=== PATIENT | female | born 1995 | race American Indian/Alaskan Native ===

== ENCOUNTER 2017-10-18 22:46 | Emergency (ER) | payer SELFPAY ==
[2017-10-19] MEDS ORDERED: DELTASONE PO ONE (08:39)
[2017-10-19] MEDS ORDERED: TORADOL IM ONE (08:39)
[2017-10-19 08:42] LABS: Bilirubin,Urine NEG (Negative); Blood,Urine LG (Negative); Color,Urine Yellow (Yellow); Mucus,Urine FEW /HPF; Urobilinogen,Urine < 2.0 mg/dL (<2.0)
--- NOTE | 2017-10-19 08:44 | Emergency Department Report ---
ED Back Pain/Injury HPI - General Chief Complaint: Urogenital-Female Stated Complaint: PELVIC PAIN/LEG TINGLING Time Seen by Provider: 10/19/17 08:06 Source: patient Limitations: No Limitations - History of Present Illness Initial Comments: This is a 22-year-old female nontoxic, well nourished in appearance, no acute signs of distress presents to the ED with c/o of acute on chronic lower back pain. Patient denies any pelvic pain, even though triage nurse wrote pelvic pain. Patient stated is only her back pain. Patient states has history of sciatica nerve pain which is similar symptoms as today. Patient states that pain radiates through to his bilateral lower extremity and is tingling. Patient denies any trauma. Denies any bladder or bowel instability. Patient denies any urinary symptoms. Denies any fever, chills, nausea, vomiting, headache, stiff neck, chest pain or shortness of breath. Patient denies any numbness or tingling. Denies any allergies. Denies significant past medical history besides sick cell trait. Patient stated is on her menstrual cycle today. MD Complaint: back pain -: days(s) (2) Similar Symptoms Previously: Yes Radiation: left leg, right leg Severity: mild Severity scale (0 -10): 8 Quality: aching Consistency: constant Improves With: immobilization, supine, sitting upright Worsens With: movement, walking Associated Symptoms: denies other symptoms. denies: confusion, weakness, chest pain, numbness, difficulty walking, cough, difficulty urinating, diaphoresis, incontinence, fever/chills, constipation, headaches, abdominal pain, loss of appetite, malaise, nausea/vomiting, rash, seizure, shortness of breath, syncope - Related Data Previous Rx's Medication Instructions Recorded Last Taken Type Acetaminophen/Codeine [Tylenol #3] 1 tab PO Q6H PRN #14 tab 07/01/14 Unknown Rx Azithromycin [Zithromax Z-GURU] 250 mg PO DAILY #6 tablet 07/01/14 Unknown Rx metroNIDAZOLE [Flagyl] 500 mg PO BID #10 tablet 07/01/14 Unknown Rx Cyclobenzaprine [Flexeril] 10 mg PO QHS PRN #10 tablet 10/19/17 Unknown Rx Ibuprofen [Motrin] 600 mg PO Q8H PRN #30 tablet 10/19/17 Unknown Rx Allergies Allergy/AdvReac Type Severity Reaction Status Date / Time No Known Allergies Allergy Unverified 07/01/14 16:35 ED Review of Systems ROS: Stated complaint: PELVIC PAIN/LEG TINGLING Other details as noted in HPI Constitutional: denies: chills, fever Eyes: denies: eye pain, eye discharge, vision change ENT: denies: ear pain, throat pain Respiratory: denies: cough, shortness of breath, wheezing Cardiovascular: denies: chest pain, palpitations Endocrine: no symptoms reported Gastrointestinal: denies: abdominal pain, nausea, diarrhea Genitourinary: denies: urgency, dysuria, discharge Musculoskeletal: back pain. denies: joint swelling, arthralgia Skin: denies: rash, lesions Neurological: denies: headache, weakness, paresthesias Psychiatric: denies: anxiety, depression Hematological/Lymphatic: denies: easy bleeding, easy bruising ED Past Medical Hx - Past Medical History Previous Medical History?: Yes Hx Sickle Cell Disease: Yes (trait) - Surgical History Past Surgical History?: No - Social History Smoking Status: Never Smoker Substance Use Type: Alcohol - Medications Home Medications: Home Medications Medication Instructions Recorded Confirmed Last Taken Type Acetaminophen/Codeine [Tylenol #3] 1 tab PO Q6H PRN #14 tab 07/01/14 Unknown Rx Azithromycin [Zithromax Z-GURU] 250 mg PO DAILY #6 tablet 07/01/14 Unknown Rx metroNIDAZOLE [Flagyl] 500 mg PO BID #10 tablet 07/01/14 Unknown Rx Cyclobenzaprine [Flexeril] 10 mg PO QHS PRN #10 tablet 10/19/17 Unknown Rx Ibuprofen [Motrin] 600 mg PO Q8H PRN #30 tablet 10/19/17 Unknown Rx ED Physical Exam - General Limitations: No Limitations General appearance: alert, in no apparent distress - Head Head exam: Present: atraumatic, normocephalic - Eye Eye exam: Present: normal appearance Pupils: Present: normal accommodation - ENT ENT exam: Present: normal exam, mucous membranes moist - Neck Neck exam: Present: normal inspection, full ROM. Absent: tenderness, meningismus, lymphadenopathy - Respiratory Respiratory exam: Present: normal lung sounds bilaterally. Absent: respiratory distress, wheezes, rales, rhonchi, stridor, chest wall tenderness, accessory muscle use, decreased breath sounds, prolonged expiratory - Cardiovascular Cardiovascular Exam: Present: regular rate, normal rhythm, normal heart sounds. Absent: bradycardia, tachycardia, irregular rhythm, systolic murmur, diastolic murmur, rubs, gallop - GI/Abdominal GI/Abdominal exam: Present: soft, normal bowel sounds. Absent: distended, tenderness, guarding, rebound, rigid, diminished bowel sounds - Rectal Rectal exam: Present: deferred - Extremities Exam Extremities exam: Present: normal inspection, full ROM, normal capillary refill. Absent: tenderness - Back Exam Back exam: Present: normal inspection, full ROM, paraspinal tenderness (lumbar paraspinal). Absent: tenderness, CVA tenderness (R), CVA tenderness (L), muscle spasm, vertebral tenderness, rash noted - Expanded Back Exam Expanded Back exam: Absent: saddle anesthesia Back exam: Negative Straight Leg Raising: Left, Right - Neurological Exam Neurological exam: Present: alert, oriented X3, normal gait - Psychiatric Psychiatric exam: Present: normal affect, normal mood - Skin Skin exam: Present: warm, dry, intact, normal color. Absent: rash ED Course Vital Signs 10/18/17 10/19/17 23:14 05:22 Temperature 98.7 F 98.3 F Pulse Rate 85 75 Respiratory 18 10 L Rate Blood Pressure 132/99 139/81 O2 Sat by Pulse 100 100 Oximetry - Reevaluation(s) Reevaluation #1: 10/19/17 08:45 Patient is speaking in full sentences with no signs of distress noted. ED Medical Decision Making - Medical Decision Making This is a 22-year-old female that presents with low back strain. Patient is stable was examined by me. There is no spinal tenderness. There is no cauda equina syndrome during examination. No bladder or bowel instability. Patient received Toradol 30 mg IM and prednisone 60 mg PO in the ED which stated her symptoms has resolved and subsided. UA obtained with slight elevation of WBCs. Patient is on her menstrual cycle today. Will treat patient with bactrim empirically. Patient is discharged with muscle relaxant and Motrin. Patient was instructed not to operate any machinery while taking muscle relaxant as they cause her drowsiness. Patient was referred to Follow-up with a primary care doctor in 3-5 days or if symptoms worsen and continue return to emergency room as soon as possible. At time of discharge, the patient does not seem toxic or ill in appearance. No acute signs of distress noted. Patient agrees to discharge treatment plan of care. No further questions noted by the patient. This chart is dictated with using [employer] Critical care attestation.: If time is entered above; I have spent that time in minutes in the direct care of this critically ill patient, excluding procedure time. ED Disposition Clinical Impression: Sciatic leg pain Low back strain Qualifiers: Encounter type: initial encounter Qualified Code(s): S39.012A - Strain of muscle, fascia and tendon of lower back, initial encounter Disposition: TO HOME OR SELFCARE Is pt being admited?: No Does the pt Need Aspirin: No Condition: Stable Instructions: Low Back Strain (ED), Cyclobenzaprine (By mouth), Sciatica (ED) Additional Instructions: Follow-up with your primary care doctor in 3-5 days or if symptoms worsen such as bladder or bowel stability, chest pain, short of breath, numbness or tingling sensation in extremities, headache, dizziness, visual changes, nausea vomiting, or abdominal pain, return back to emergency room as was possible. Take ibuprofen and Flexeril as prescribed. Do not operate heavy machinery while taking Flexeril due to sedation Prescriptions: Cyclobenzaprine [Flexeril] 10 mg PO QHS PRN #10 tablet PRN Reason: Muscle Spasm Ibuprofen [Motrin] 600 mg PO Q8H PRN #30 tablet PRN Reason: Pain Referrals: PRIMARY CARE, [Primary Care Provider] - 3-5 Days SHON WOODARD MD [Staff Physician] - 3-5 Days [facility] [Outside] - 3-5 Days [facility] [Outside] - 3-5 Days Forms: Work/School Release Form(ED)
[2017-10-19 08:45] LABS: RBC,Urine > 182.0 /HPF (0.0-6.0)
[2017-10-19 09:05] VITALS: BP 134/80
== END 2017-10-19 09:04 | disposition home or self-care (01) ==
LOC: ED 22:46
DX: S39.012A Strain of muscle, fascia and tendon of lower back, initial encounter (principal); M54.32 Sciatica, left side; M54.31 Sciatica, right side; D57.3 Sickle-cell trait; X58.XXXA Exposure to other specified factors, initial encounter; Y93.89 Activity, other specified; Y92.89 Other specified places as the place of occurrence of the external cause; Y99.8 Other external cause status
CPT/HCPCS: 81001; 87086; 96372; 99283; J1885; J7512

== ENCOUNTER 2018-04-24 13:29 | Emergency (ER) | payer OTHER ==
--- NOTE | 2018-04-24 13:55 | Emergency Department Report ---
Blank Doc - Documentation Documentation: This is a 22-year-old female that presents with vaginal bleeding x1 day. Stated is is unsure how long. Also has some pelvic cramping. Stated had vaginal bleeding yesterday but denies any today. This initial assessment diagnostic orders/clinical plan/treatment(s) is/are subject to change based on patient's health status, clinical progression and re- assessment by fellow clinical providers in the ED. Further treatment and workup at subsequent clinical providers discretion. Patient/guardians urged not to elope from ED s their condition may be serious if not clinically assessed and managed. Initial orders include: 1-Patient sent to [facility] for further evaluation and treatment 2- Labs 3- US OB
[2018-04-24 13:57] VITALS: BP 114/73
--- NOTE | 2018-04-24 14:44 | Emergency Department Report ---
<DIMITRIS CAUSEY - Last Filed: 04/24/18 16:55> ED Female HPI - General Chief complaint: Vaginal Bleeding Stated complaint: POSS MISCARRIAGE Time Seen by Provider: 04/24/18 13:54 Source: patient Mode of arrival: Ambulatory Limitations: No Limitations - History of Present Illness MD Complaint: vaginal bleeding, pelvic pain -: Last night Location: suprapubic Radiation: non-radiating Severity: moderate Severity scale (0 -10): 4 Quality: cramping Consistency: intermittent - Related Data Sexually active: Yes : 1 Para: 0 A: 1 Previous Rx's Medication Instructions Recorded Last Taken Type Acetaminophen/Codeine [Tylenol #3] 1 tab PO Q6H PRN #14 tab 07/01/14 Unknown Rx Azithromycin [Zithromax Z-GURU] 250 mg PO DAILY #6 tablet 07/01/14 Unknown Rx metroNIDAZOLE [Flagyl] 500 mg PO BID #10 tablet 07/01/14 Unknown Rx Cyclobenzaprine [Flexeril] 10 mg PO QHS PRN #10 tablet 10/19/17 Unknown Rx Ibuprofen [Motrin 600 MG tab] 600 mg PO Q8H PRN #15 tablet 04/19/18 Unknown Rx Acetaminophen [Tylenol 8 Hour] 650 mg PO TID #30 tablet.er 04/24/18 Unknown Rx Nitrofurantoin [place]/M-Cryst 100 mg PO Q12HR #14 capsule 04/24/18 Unknown Rx [Macrobid CAP] Allergies Allergy/AdvReac Type Severity Reaction Status Date / Time No Known Allergies Allergy Unverified 07/01/14 16:35 ED Review of Systems Comment: All other systems reviewed and negative Constitutional: denies: chills, malaise Respiratory: denies: cough, orthopnea, shortness of breath, SOB with exertion, SOB at rest, wheezing Cardiovascular: denies: chest pain, palpitations, dyspnea on exertion Gastrointestinal: denies: abdominal pain, nausea, vomiting, diarrhea, constipation, hematemesis, melena, hematochezia Genitourinary: denies: urgency, dysuria, frequency, hematuria Musculoskeletal: denies: back pain Neurological: denies: headache, weakness ED Past Medical Hx - Past Medical History Previous Medical History?: No Hx Sickle Cell Disease: Yes (trait) Additional medical history: GERD - Surgical History Past Surgical History?: No - Social History Smoking Status: Never Smoker Substance Use Type: None - Medications Home Medications: Home Medications Medication Instructions Recorded Confirmed Last Taken Type Acetaminophen/Codeine [Tylenol #3] 1 tab PO Q6H PRN #14 tab 07/01/14 Unknown Rx Azithromycin [Zithromax Z-GURU] 250 mg PO DAILY #6 tablet 07/01/14 Unknown Rx metroNIDAZOLE [Flagyl] 500 mg PO BID #10 tablet 07/01/14 Unknown Rx Cyclobenzaprine [Flexeril] 10 mg PO QHS PRN #10 tablet 10/19/17 Unknown Rx Ibuprofen [Motrin 600 MG tab] 600 mg PO Q8H PRN #15 tablet 04/19/18 Unknown Rx Acetaminophen [Tylenol 8 Hour] 650 mg PO TID #30 tablet.er 04/24/18 Unknown Rx Nitrofurantoin [place]/M-Cryst 100 mg PO Q12HR #14 capsule 04/24/18 Unknown Rx [Macrobid CAP] ED Physical Exam - General Limitations: No Limitations General appearance: alert, in no apparent distress - Head Head exam: Present: atraumatic, normocephalic, normal inspection - Eye Eye exam: Present: normal appearance, PERRL - ENT ENT exam: Present: normal exam, normal orophraynx, mucous membranes moist - Neck Neck exam: Present: normal inspection, full ROM. Absent: tenderness, meningismus, lymphadenopathy, thyromegaly - Respiratory Respiratory exam: Present: normal lung sounds bilaterally. Absent: respiratory distress, wheezes, rales, rhonchi, chest wall tenderness, accessory muscle use, decreased breath sounds, prolonged expiratory - Cardiovascular Cardiovascular Exam: Present: regular rate, normal rhythm, normal heart sounds - GI/Abdominal GI/Abdominal exam: Present: soft, normal bowel sounds. Absent: distended, tenderness, guarding, rebound, rigid, organomegaly, mass, bruit, pulsatile mass, hernia - Extremities Exam Extremities exam: Present: normal inspection, full ROM, normal capillary refill. Absent: pedal edema, calf tenderness - Back Exam Back exam: Present: normal inspection, full ROM. Absent: tenderness, CVA tenderness (R), CVA tenderness (L), muscle spasm, paraspinal tenderness, vertebral tenderness, rash noted - Neurological Exam Neurological exam: Present: alert, oriented X3, CN II-XII intact, normal gait, reflexes normal - Psychiatric Psychiatric exam: Present: normal mood - Skin Skin exam: Present: warm, intact, normal color ED Medical Decision Making - Lab Data Result diagrams: 04/24/18 14:29 04/24/18 14:50 ED Disposition Clinical Impression: Abdominal pain affecting , Vaginal bleeding during , UTI (urinary tract infection) during Disposition: DC-01 TO HOME OR SELFCARE Is pt being admited?: No Condition: Stable Instructions: Threatened Miscarriage (ED), (ED) Additional Instructions: You will need a repeat ultrasound in 1-2 weeks. If you have any worsening symptoms physician's ED immediately Follow-up with [facility] as you be referred Prescriptions: Acetaminophen [Tylenol 8 Hour] 650 mg PO TID #30 tablet.er Nitrofurantoin [place]/M-Cryst [Macrobid CAP] 100 mg PO Q12HR #14 capsule Referrals: YANIRA DELGADILLO [Primary Care Provider] - 3-5 Days RYLIE BUSTAMANTE [Staff Physician] - 3-5 Days Forms: Work/School Release Form(ED) <MOHAN ZARATE - Last Filed: 04/24/18 18:03> ED Review of Systems ROS: Stated complaint: POSS MISCARRIAGE Other details as noted in HPI ED Course Vital Signs 04/24/18 13:55 Temperature 98.1 F Pulse Rate 76 Respiratory 16 Rate Blood Pressure 114/73 O2 Sat by Pulse 99 Oximetry ED Medical Decision Making - Lab Data Result diagrams: 04/24/18 14:29 04/24/18 14:50 - Radiology Data Radiology results: report reviewed, image reviewed TECHNIQUE: Transabdominal and transvaginal obstetrical ultrasound with pulsed and color Doppler evaluation PRIORS: None. FINDINGS: There is a sac-like structure seen centrally within the uterus is measuring 2.2 centimeters in average diameter. By sac size corresponding to estimated gestational age 7 weeks 1 day There is echogenic thin linear septated appearance seen centrally without definitive pole or cardiac activity identified. No free fluid identified in the cul-de-sac Right ovary 3.6 x 3.2 x 4.5 centimeters. 2.8 centimeter complex cyst noted Left ovary 2.6 x 1.7 x 3.1 centimeters. There is normal vascular flow seen to both ovaries on pulsed and color Doppler evaluation IMPRESSION: There is presumed gestational sac seen centrally within the uterus. No definitive pole or structure seen at this time. May reflect very early IUP and continued followup along with correlation with lab values recommended. Right ovarian cyst noted Transcribed By: ALAN Dictated By: AUSTYN GAMA MD Electronically Authenticated By: AUSTYN GAMA MD Critical care attestation.: If time is entered above; I have spent that time in minutes in the direct care of this critically ill patient, excluding procedure time. ED Disposition Is pt being admited?: No Does the pt Need Aspirin: No Time of Disposition: 17:55
[2018-04-24 14:46] LABS: Basophils % (Auto) 0.3 % (0.0-1.8); Eosinophils % (Auto) 0.3 % (0.0-4.3); Hematocrit 31.8 % (30.3-42.9); Hemoglobin 9.9 gm/dl (10.1-14.3); Lymphocytes # (Auto) 1.5 K/mm3 (1.2-5.4); Lymphocytes % (Auto) 24.1 % (13.4-35.0); Mean Corpuscular HGB Conc 31 % (30-34); Mean Corpuscular Volume 65 fl (79-97); Monocytes # (Auto) 0.9 K/mm3 (0.0-0.8); Monocytes % (Auto) 13.7 % (0.0-7.3); Platelet Count 353 K/mm3 (140-440); Red Blood Count 4.94 M/mm3 (3.65-5.03); Red Cell Distribution Width 22.1 % (13.2-15.2)
[2018-04-24 15:04] LABS: Bacteria,Urine 1+ /HPF (Negative); Bilirubin,Urine NEG (Negative); Blood,Urine NEG (Negative); Color,Urine Yellow (Yellow); Mucus,Urine FEW /HPF
[2018-04-24 15:16] LABS: INR 0.96 (0.87-1.13)
[2018-04-24 15:17] LABS: Partial Thromboplastin Time 22.6 Sec. (24.2-36.6)
[2018-04-24 15:21] LABS: BUN/Creatinine Ratio 20; Blood Urea Nitrogen 12 mg/dL (7-17); Hemolysis Index 6
--- NOTE | 2018-04-24 17:33 | Ultrasound Report ---
FINAL REPORT EXAM: US OB < = 14 WEEKS FETUS HISTORY: pelvic pain/vaginal bleeding TECHNIQUE: Transabdominal and transvaginal obstetrical ultrasound with pulsed and color Doppler eval uation PRIORS: None. FINDINGS: There is a sac-like structure seen centrally within the uterus is measuring 2.2 centimeters in averag e diameter. By sac size corresponding to estimated gestational age 7 weeks 1 day There is echogenic thin linear septated appearance seen centrally without definitive pole or ca rdiac activity identified. No free fluid identified in the cul-de-sac Right ovary 3.6 x 3.2 x 4.5 centimeters. 2.8 centimeter complex cyst noted Left ovary 2.6 x 1.7 x 3.1 centimeters. There is normal vascular flow seen to both ovaries on pulsed and color Doppler evaluation IMPRESSION: There is presumed gestational sac seen centrally within the uterus. No definitive pole or struc ture seen at this time. May reflect very early IUP and continued followup along with correlation with lab values recommended. Right ovarian cyst noted
--- NOTE | 2018-04-24 17:38 | Ultrasound Report ---
FINAL REPORT PROCEDURE: Transvaginal obstetrical ultrasound. TECHNIQUE: Real-time transvaginal sonography of the uterus, placenta, amniotic fluid, adnexa, and fe tus was performed with image documentation. Measurements were obtained to determine age/size. M -mode Doppler was used to document heartbeat. CPT 60209 HISTORY: pelvic pain/vaginal bleeding COMPARISON: No prior studies are available for comparison. FINDINGS: The uterine myometrium is unremarkable. There is a fluid collection in the fundal portion of the endo metrial canal. This has an appearance consistent with a gestational sac. The mean gestational sac hemal meter is 22 millimeters. This would indicate a menstrual age of 7 weeks 1 day. The estimated date of confinement would be 12/10/2018. There is no yolk sac or normal appearing pole identified howev er. There is a rounded mass within this fluid collection that measures 1.3 centimeters x 1.1 centimet ers x 0.7 centimeters. There is no heart rate detected in this mass. Follow-up imaging is recom mended. The left ovary appears normal. There is a complex mass in the right ovary measuring 2.8 centi meters in maximum dimension. There is a small amount of free fluid in the cul-de-sac. IMPRESSION: Possible intrauterine gestational sac. No definite viable pole identified. Complex right ovaria n cyst.
== END 2018-04-24 18:06 | disposition home or self-care (01) ==
LOC: ED 13:29
DX: O46.91 Antepartum hemorrhage, unspecified, first trimester (principal); O23.41 Unspecified infection of urinary tract in pregnancy, first trimester; Z3A.01 Less than 8 weeks gestation of pregnancy
CPT/HCPCS: 36415; 76801; 76817; 80048; 81001; 84702; 85025; 85610; 85730; 86850; 86900; 86901; 99284

== ENCOUNTER 2018-04-28 11:04 | Emergency (ER) | payer OTHER ==
[2018-04-28] MEDS ORDERED: ZOFRAN ODT ONE (11:22)
[2018-04-28] MEDS ORDERED: ZOFRAN ODT PO ONE (11:24)
--- NOTE | 2018-04-28 11:37 | Emergency Department Report ---
ED General Adult HPI - General Chief complaint: Nausea/Vomiting/Diarrhea Stated complaint: 4WKS PREG VOMITING Time Seen by Provider: 04/28/18 11:26 Source: patient, RN notes reviewed, old records reviewed Mode of arrival: Ambulatory Limitations: No Limitations - History of Present Illness Initial comments: This is a 22-year-old female who was not known to this provider previously. She is 2, para 0. Last menstrual period is March 16. Patient presented to this department for days ago, had an obstetrics ultrasound, demonstrating a "possible intrauterine gestational sac." No definite pole was identified. She was discharged home with Macrobid and acetaminophen. She is currently trying to obtain an outpatient laster hand. She presents to the emergency room with resolved nausea and vomiting. Vomited twice this morning, and "too many times to count yesterday." Reports 4 pound unintentional weight loss. Denies headache, neck pain, chest pain, abdominal pain, urinary symptoms. Endorses mild nausea at this point time. -: Gradual Severity scale (0 -10): 0 Consistency: now resolved Improves with: none Worsens with: none Associated Symptoms: loss of appetite, nausea/vomiting - Related Data Previous Rx's Medication Instructions Recorded Last Taken Type Acetaminophen/Codeine [Tylenol #3] 1 tab PO Q6H PRN #14 tab 07/01/14 Unknown Rx RX: Azithromycin [Zithromax Z-GURU] 250 mg PO DAILY #6 tablet 07/01/14 Unknown Rx metroNIDAZOLE [Flagyl] 500 mg PO BID #10 tablet 07/01/14 Unknown Rx Cyclobenzaprine [Flexeril] 10 mg PO QHS PRN #10 tablet 10/19/17 Unknown Rx RX: Ibuprofen [Motrin 600 MG tab] 600 mg PO Q8H PRN #15 tablet 04/19/18 Unknown Rx Acetaminophen [Tylenol 8 Hour] 650 mg PO TID #30 tablet.er 04/24/18 Unknown Rx Nitrofurantoin Rains/M-Cryst 100 mg PO Q12HR #14 capsule 04/24/18 Unknown Rx [Macrobid CAP] Doxylamine Succinate/Vit B6 1 each PO QHS PRN #30 tablet. 04/28/18 Unknown Rx [Rachel Tyler 10-10 mg Tablet] Payton Root [Payton] 250 mg PO QID PRN #30 capsule 04/28/18 Unknown Rx Allergies Allergy/AdvReac Type Severity Reaction Status Date / Time No Known Allergies Allergy Unverified 07/01/14 16:35 ED Review of Systems ROS: Stated complaint: 4WKS PREG VOMITING Other details as noted in HPI Constitutional: denies: fever Eyes: denies: vision change ENT: denies: epistaxis Respiratory: denies: cough Cardiovascular: denies: chest pain Gastrointestinal: nausea, vomiting. denies: diarrhea Genitourinary: denies: dysuria Musculoskeletal: denies: back pain Skin: denies: lesions Neurological: denies: headache Psychiatric: anxiety ED Past Medical Hx - Past Medical History Hx Sickle Cell Disease: Yes (trait) Additional medical history: GERD - Surgical History Hx Appendectomy: No - Social History Smoking Status: Never Smoker Substance Use Type: None - Medications Home Medications: Home Medications Medication Instructions Recorded Confirmed Last Taken Type Acetaminophen/Codeine [Tylenol #3] 1 tab PO Q6H PRN #14 tab 07/01/14 Unknown Rx RX: Azithromycin [Zithromax Z-GURU] 250 mg PO DAILY #6 tablet 07/01/14 Unknown Rx metroNIDAZOLE [Flagyl] 500 mg PO BID #10 tablet 07/01/14 Unknown Rx Cyclobenzaprine [Flexeril] 10 mg PO QHS PRN #10 tablet 10/19/17 Unknown Rx RX: Ibuprofen [Motrin 600 MG tab] 600 mg PO Q8H PRN #15 tablet 04/19/18 Unknown Rx Acetaminophen [Tylenol 8 Hour] 650 mg PO TID #30 tablet.er 04/24/18 Unknown Rx Nitrofurantoin Rains/M-Cryst 100 mg PO Q12HR #14 capsule 04/24/18 Unknown Rx [Macrobid CAP] Doxylamine Succinate/Vit B6 1 each PO QHS PRN #30 tablet.dr 04/28/18 Unknown Rx [Diclegis Dr 10-10 mg Tablet] Payton Root [Payton] 250 mg PO QID PRN #30 capsule 04/28/18 Unknown Rx ED Physical Exam - General Limitations: No Limitations General appearance: alert, in no apparent distress - Head Head exam: Present: atraumatic, normocephalic - Eye Eye exam: Present: normal appearance, EOMI. Absent: nystagmus - ENT ENT exam: Present: normal exam, normal orophraynx, mucous membranes moist, normal external ear exam - Neck Neck exam: Present: normal inspection, full ROM. Absent: tenderness, meningismus - Respiratory Respiratory exam: Present: normal lung sounds bilaterally. Absent: respiratory distress - Cardiovascular Cardiovascular Exam: Present: normal rhythm, tachycardia, normal heart sounds. Absent: systolic murmur, diastolic murmur, rubs, gallop - GI/Abdominal GI/Abdominal exam: Present: soft, normal bowel sounds. Absent: distended, tenderness, guarding, rebound, rigid, pulsatile mass - Extremities Exam Extremities exam: Present: normal inspection, full ROM, other (2+ pulses noted in the bilateral upper, lower extremities. Compartments soft. No long bony tenderness. The pelvis is stable.). Absent: pedal edema, joint swelling, calf tenderness - Back Exam Back exam: Present: normal inspection, full ROM. Absent: tenderness, CVA tenderness (R), paraspinal tenderness, vertebral tenderness - Neurological Exam Neurological exam: Present: alert, oriented X3, CN II-XII intact, normal gait, other (Extraocular movements intact. Tongue midline. No facial droop. Facial sensation intact to light touch in the V1, V2, V3 distribution bilaterally. 5 and 5 strength in 4 extremities.. Sensation is intact to light touch in 4 extremities.). Absent: motor sensory deficit - Psychiatric Psychiatric exam: Present: normal affect, normal mood - Skin Skin exam: Present: warm, dry, intact, normal color. Absent: rash ED Course Vital Signs 04/28/18 04/28/18 04/28/18 11:08 11:43 14:03 Temperature 98.4 F 98.2 F Pulse Rate 107 H 89 Respiratory 17 20 20 Rate Blood Pressure 112/60 Blood Pressure 116/80 [Right] O2 Sat by Pulse 100 98 Oximetry - Reevaluation(s) Reevaluation #1: 04/28/18 12:46 Differential diagnosis, including not limited to: Dehydration, electrolyte derangement, nausea and vomiting of , ectopic versus intrauterine Assessment and plan: 22-year-old female with probable nausea and vomiting of . The patient is afebrile with reassuring vital signs with minimal tachycardia. This may be secondary to underlying physiology of . Her ultrasound 4 days ago was suggestive of possible intrauterine gestational sac, but not definitive. We will check basic laboratory studies, treat her with Zofran, D5 half normal, and reassess once her initial data points have resulted. Had a urinalysis a few days ago, and was discharged with acetaminophen and Macrobid. Reevaluation #2: 04/28/18 14:01 Patient reassessed. Tolerating liquid feeds. Feels improved. Reports she will follow up as an outpatient to have her outpatient ultrasound performed. She r eports she is reliable to follow-up. Her most recent ultrasound suggested a gestational sac. ED Medical Decision Making - Lab Data Result diagrams: 04/28/18 11:39 04/28/18 11:39 Vital Signs 04/28/18 04/28/18 11:08 11:43 Temperature 98.4 F Pulse Rate 107 H Respiratory 17 20 Rate Blood Pressure 112/60 O2 Sat by Pulse 100 Oximetry Lab Results 04/28/18 04/28/18 04/28/18 Range/Units 11:39 11:39 11:39 WBC 5.3 (4.5-11.0) K/mm3 RBC 5.02 (3.65-5.03) M/mm3 Hgb 10.0 L (10.1-14.3) gm/dl Hct 31.6 (30.3-42.9) % MCV 63 L (79-97) fl MCH 20 L (28-32) pg MCHC 32 (30-34) % RDW 22.3 H (13.2-15.2) % Plt Count 328 (140-440) K/mm3 Sodium 133 L (137-145) mmol/L Potassium 3.4 L (3.6-5.0) mmol/L Chloride 99.2 (98-107) mmol/L Carbon Dioxide 24 (22-30) mmol/L Anion Gap 13 mmol/L BUN 7 (7-17) mg/dL Creatinine 0.5 L (0.7-1.2) mg/dL Estimated GFR > 60 ml/min BUN/Creatinine Ratio 14 % Glucose 114 H (65-100) mg/dL Calcium 9.1 (8.4-10.2) mg/dL Magnesium 1.80 (1.7-2.3) mg/dL HCG, Quant [id number] H (0-4) mIU/mL - Radiology Data Radiology results: report reviewed, image reviewed - Medical Decision Making Print Report Referring Physician: KAREN CONTRERAS Patient Name: LEA KHAN Date of : 1995 Sex: Female Report Date: 2018-04-24 Report Status: Finalized Findings [facility] [address] [place] [address] Ultrasound Report Signed Patient: LEA KHAN MR#: [id number] : 1995 Acct:[id number] Age/Sex: 22 / F ADM Date: 04/24/18 Loc: ED Attending Dr: Ordering Physician: KAREN CONTRERAS NP Date of Service: 04/24/18 Procedure(s): US OB transvaginal Accession Number(s): [id number] cc: KAREN CONTRERAS NP FINAL REPORT PROCEDURE: Transvaginal obstetrical ultrasound. TECHNIQUE: Real-time transvaginal sonography of the uterus, placenta, amniotic fluid, adnexa, and fetus was performed with image documentation. Measurements were obtained to determine age/size. M-mode Doppler was used to document heartbeat. CPT 28594 HISTORY: pelvic pain/vaginal bleeding COMPARISON: No prior studies are available for comparison. FINDINGS: The uterine myometrium is unremarkable. There is a fluid collection in the fundal portion of the endometrial canal. This has an appearance consistent with a gestational sac. The mean gestational sac diameter is 22 millimeters. This would indicate a menstrual age of 7 weeks 1 day. The estimated date of confinement would be 12/10/2018. There is no yolk sac or normal appearing pole identified however. There is a rounded mass within this fluid collection that measures 1.3 centimeters x 1.1 centimeters x 0.7 centimeters. There is no heart rate detected in this mass. Follow-up imaging is recommended. The left ovary appears normal. There is a complex mass in the right ovary measuring 2.8 centimeters in maximum dimension. There is a small amount of free fluid in the cul-de-sac. IMPRESSION: Possible intrauterine gestational sac. No definite viable pole identified. Complex right ovarian cyst. Transcribed By: [facility] Dictated By: ROXANA TRUONG MD Electronically Authenticated By: ROXANA TRUONG MD Signed Date/Time: 04/24/18 0781 Critical care attestation.: If time is entered above; I have spent that time in minutes in the direct care of this critically ill patient, excluding procedure time. ED Disposition Clinical Impression: Nausea and vomiting during Disposition: DC-01 TO HOME OR SELFCARE Is pt being admited?: No Does the pt Need Aspirin: No Condition: Good Instructions: Hyperemesis Gravidarum (ED) Additional Instructions: Take the medications as needed/directed. Advance diet as tolerated, and avoid consumption of Motrin, ibuprofen, Naprosyn, Aleve, heavy, spicy foods. Follow- up with an HEALTH CARE ANALYST doctor as soon as possible to initiate outpatient care. Return to the emergency room right away with new, worsening or different symptoms. Return to the emergency room right away with projectile vomiting, change in mental status, confusion, inability to tolerate liquid feeds. Prescriptions: Doxylamine Succinate/Vit B6 [Rachel Tyler 10-10 mg Tablet] 1 each PO QHS PRN #30 tablet. PRN Reason: Nausea Payton Root [Payton] 250 mg PO QID PRN #30 capsule PRN Reason: Nausea Referrals: [facility] [Provider Group] - 3-5 Days [facility] [Provider Group] - 3-5 Days [facility] [Provider Group] - 3-5 Days Forms: Work/School Release Form(ED)
[2018-04-28 11:49] LABS: Hematocrit 31.6 % (30.3-42.9); Mean Corpuscular HGB Conc 32 % (30-34); Platelet Count 328 K/mm3 (140-440); Red Blood Count 5.02 M/mm3 (3.65-5.03)
[2018-04-28 11:50] LABS: Mean Corpuscular Volume 63 fl (79-97); Red Cell Distribution Width 22.3 % (13.2-15.2)
[2018-04-28] MEDS ORDERED: D5/0.45NS 1,000 ML IV SCH (12:00)
[2018-04-28 12:09] LABS: BUN/Creatinine Ratio 14; Blood Urea Nitrogen 7 mg/dL (7-17); Calcium 9.1 mg/dL (8.4-10.2); Hemolysis Index 3
[2018-04-28] MEDS ORDERED: K-DUR PO ONE (12:31)
[2018-04-28 14:03] VITALS: BP 116/80
== END 2018-04-28 14:26 | disposition home or self-care (01) ==
LOC: ED 11:04
DX: O21.8 Other vomiting complicating pregnancy (principal); R63.0 Anorexia; Z3A.01 Less than 8 weeks gestation of pregnancy
CPT/HCPCS: 36415; 80048; 83735; 84702; 85027; 96360; 96361; Q0162

== ENCOUNTER 2020-08-14 12:18 | Outpatient (CLI) | payer OTHER ==
[2020-08-14 13:15] VITALS: BP 113/76
[2020-08-14] MEDS ORDERED: PROMETHAZINE 25 MG RECT SUPP PR PRN (13:40)
--- NOTE | 2020-08-14 13:54 | Ultrasound Report ---
ULTRASOUND OBSTETRIC LIMITED ULTRASOUND BIOPHYSICAL PROFILE INDICATION / CLINICAL INFORMATION: decr fm. Clinical Gestational Age (GA): 26.4 weeks.days COMPARISON: None available. FINDINGS: BREATHING MOVEMENT = 2 GROSS BODY MOVEMENT = 2 TONE = 2 QUALITATIVE AMNIOTIC FLUID VOLUME = 2 TOTAL BIOPHYSICAL SCORE = 8/8 HEART RATE (beats per minute): 152 PRESENTATION: Breech. ADDITIONAL FINDINGS: None. IMPRESSION: 1. Biophysical Score = 8/8 2. Additional findings as above. Signer Name: Charan Tobar MD Signed: 08/14/2020 1:50 PM Workstation Name: [id number]
== END 2020-08-14 13:56 | disposition home or self-care (01) ==
LOC: TRG 12:18 → APU 12:19 → TRG 13:56
PROVIDERS: ATTEND Obstetrics & Gynecology
DX: O36.8120 Decreased fetal movements, second trimester, not applicable or unspecified (principal); Z3A.26 26 weeks gestation of pregnancy
CPT/HCPCS: 76819

== ENCOUNTER 2020-10-15 10:22 | Outpatient (CLI) | payer OTHER ==
[2020-10-15 10:53] VITALS: BP 107/71
[2020-10-15] MEDS ORDERED: LACTATED RINGERS 500 ML IV ONE (11:11)
== END 2020-10-15 11:18 | disposition home or self-care (01) ==
LOC: TRG 10:22 → APU 10:27 → TRG 11:18
PROVIDERS: ATTEND Obstetrics & Gynecology
DX: Z34.93 Encounter for supervision of normal pregnancy, unspecified, third trimester (principal); Z3A.35 35 weeks gestation of pregnancy
CPT/HCPCS: 59025

== ENCOUNTER 2021-05-10 18:51 | Emergency (ER) | payer OTHER ==
[2021-05-10 19:03] VITALS: BP 115/84
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
== END 2021-05-10 21:23 | disposition home or self-care (01) ==
LOC: ED 18:51
DX: R51.9 Headache, unspecified (principal); V89.2XXA Person injured in unspecified motor-vehicle accident, traffic, initial encounter; Y93.89 Activity, other specified; Y92.89 Other specified places as the place of occurrence of the external cause; Y99.8 Other external cause status
CPT/HCPCS: 99282